=== PATIENT | female | born 1965 | race Caucasian/White ===

== ENCOUNTER 2025-02-08 16:39 | Outpatient (CLI) | payer OTHER, SELFPAY ==
--- NOTE | ~2025-02-08 | XR_ITS ---
XR abdomen/kub 1V 02/08/2025 16:57 Indication: ESWL. Right ureteral stone. Procedure: KUB Comparison: No prior studies for comparison. Findings: There is a calcification on the right hip the L3-4 level, consistent with ureteral stranding. Bowel gas pattern nonobstructive. There are pelvic phleboliths. No acute osseous abnormality. Impression: 1: Proximal right ureteral stone at the L3-4 level. Reviewed, dictated and finalized at location O. Impression: 1: Proximal right ureteral stone at the L3-4 level.
== END 2025-02-08 16:40 | disposition home or self-care (01) ==
LOC: MICIMG 16:48
PROVIDERS: PCP Urology; Visit Provider Urology
DX: N20.1 Calculus of ureter (principal)
CPT/HCPCS: 74018

== ENCOUNTER 2025-02-10 01:00 | Day surgery (SDC) | payer OTHER, SELFPAY ==
[2025-02-09 10:43] VITALS: BMI 28.0
--- NOTE | 2025-02-09 11:00 | PC.NURSE ---
Report to the Outpatient Waiting Room, entrance under the green pavilion located off [facility], at time _0930_ on date _[id number]_. Planned Procedure Time: _1130_.? Time changes happen often and if your time is changed the preop area will call you the afternoon before. - You and your visitor will be asked to self-screen and do not enter if you have any COVID symptoms. Please call surgeon if you need to reschedule. - A mask is optional within the hospital at this time. Patients may have clear liquids (water, carbonated beverages, clear teas, apple juice) until 3 hours prior to surgery with a maximum of 20 ounces. - No food from midnight until time of surgery and no smoking, or chewing tobacco (or any form of nicotine). No chewing gum, candy or mints. Take only the following medications with a SIP of water on the morning of surgery: ___Propanolol and Vilazodone____ DO NOT STOP ANY OF YOUR OTHER PRESCRIPTION MEDICATIONS PRIOR TO SURGERY EXCEPT THE FOLLOWING Hold all vitamins and supplements for 3 days per anesthesiologist. Medications to discontinue per physician Hold Ketorolac as instructed by office. Date to take last dose Please no make-up, nail chinese, hairspray, perfume, deodorant, or body powder the day of surgery.? No jewelry (including any body piercings) or valuables the day of surgery, leave them at home.? Please take a shower or bath the night before, or the morning of, surgery with an antibacterial soap.? Wear comfortable, loose fitting clothing.? - Jewelry must be removed prior to entering the operating room.? Rings and piercings that are not removed may be cut off. - The hospital will not accept responsibility for valuables.? - Please leave all valuables, including medications, at home the day of surgery. If you are going home after surgery, a licensed hack driver must drive you home.? - NO public transportation without another adult if you receive anesthesia. - We recommend that an adult stay with you for 24 hours following discharge. - We also recommend that you do not drive, make important decision, drink alcoholic beverages, or take any drugs that were not prescribed by your health care provider for at least 24 hours after your discharge time. Follow any additional instructions given to you from your surgeon. Telephone instructions given to __Hyacinth___and asked if any additional questions and then verbalized understanding. Patient advised to call surgeon office or pre surgery nurse liaison [phone] if any additional questions.
--- NOTE | 2025-02-09 14:21 | WPDANESEPPF ---
Anes - Initial Pre Proc Eval Procedure: Operation Date: 02/10/25 11:30 Proposed Procedures p Right Extracorporeal Shock Wave Lithotripsy - Diogenes Lassiter MD Date/Time: 02/09/25 14:21 Surgeon: Diogenes Lassiter MD Pre Op Diagnosis: right ureteral stone Patient Data Age: 59 Gender: F Height: 1.57 m Weight: 69.5 kg Allergies Allergy/AdvReac Type Severity Reaction Status Date / Time No Known Allergies Allergy Verified 02/10/25 10:06 Home Medications ?Medication ?Instructions ?Recorded ?Confirmed ?Type cetirizine 10 mg tablet (24Hour 10 mg PO DAILY 02/09/25 02/09/25 History Allergy) cholecalciferol (vitamin D3) 125 15,000 unit PO DAILY 02/09/25 02/09/25 History mcg (5,000 unit) tablet (Vitamin D3) estradiol 0.0375 mg/24 hr 1 patch topical .bi weekly 02/09/25 02/09/25 History semiweekly transdermal patch ketorolac 10 mg tablet 10 mg PO Q8H PRN pain 02/09/25 02/09/25 History lysine 500 mg capsule 500 mg PO BID PRN cold sores 02/09/25 02/09/25 History melatonin 10 mg capsule 10 mg PO HS 02/09/25 02/09/25 History primidone 50 mg tablet 50 mg PO BID 02/09/25 02/09/25 History propranolol 60 mg capsule,24 60 mg PO DAILY 02/09/25 02/09/25 History hr,extended release tamsulosin 0.4 mg capsule 0.4 mg PO DAILY 02/09/25 02/09/25 History trazodone 50 mg tablet 50 mg PO HS 02/09/25 02/09/25 History vilazodone 10 mg tablet 10 mg PO DAILY 02/09/25 02/09/25 History vilazodone 40 mg tablet 40 mg PO DAILY 02/09/25 02/09/25 History Patient hx anesthesia problems: none Family hx anesthesia problems: none Results Review: All pre-operative results and documents have been reviewed as part of the pre-operative evaluation. [facility] Past Medical History Medical History (Updated 02/09/25 @ 14:24 by Ry Snyder DO) Pre-diabetes Colitis Essential tremor Multiple sclerosis Surgical History Surgical History (Updated 02/09/25 @ 14:24 by Ry Snyder DO) History of mandibular surgery Social History Social History (Updated 02/10/25 @ 10:53 by Ry Snyder DO) Smoking packs per day: 1 Smoking cigarettes per day: 20.0 Years smoked: 20 Smoking pack-years: 20.00 Smoking status: Former smoker Tobacco type: cigarettes Smoking end date: 02/09/01 Additional smoking assessment comments: Only smoked when drinking Alcohol intake: former Substance use: current Substance use type: marijuana Other substance usage details: nightly Living arrangements: with family Spiritual care concerns: No Anes - Eval Final PreProcedure Day of Procedure 02/09/25 14:21 Patient weight: overweight Heart: regular rate and rhythm Lungs: clear to auscultation Airway: Mallampati scale class II Neurological: alert and oriented Last oral intake: >/= 8 hours ASA classification: III Emergent: no Anesthetic plan: proceed Anesthesia type and monitoring: general LMA and standard monitoring Results Review: All pre-operative results and documents have been reviewed as part of the pre-operative evaluation. Informed Consent: The patient's anesthetic plan and its attendant risks and benefits were discussed with the patient/family/POA. Questions were solicited and answers provided to the satisfaction of the patient/family/POA.
[2025-02-10] VITALS (8 sets, daily range): BP systolic 109–139; BP diastolic 47–89; PULSE 48–71; RESP 12–20; TEMP 36.4–36.8; O2SAT 98–100
--- NOTE | 2025-02-10 06:40 | WPDHPUPDATE1 ---
History and Physical Update Update Date/Time: 02/10/25 06:40 History and Physical has been reviewed, including an updated exam of the patient. There are NO changes in the patient's condition. Risks, benefits, and alternatives have been discussed and questions answered. Patient agrees to proceed with procedure.
--- NOTE | 2025-02-10 09:43 | ECG_ITS ---
Test Date: 2025-02-10 10:09:31 Measurements Intervals [place] Rate: 57 P: 46 CT: 145 QRS: 34 QRSD: 75 T: 43 QT: 396 QTc: 387 Interpretive Statements SINUS BRADYCARDIA WITH SINUS ARRHYTHMIA BASELINE ARTIFACT- I, II, III, AVR, AVL, AVF, V5 NORMAL ECG No previous ECG available for comparison Electronically Signed On 02-10-2025 10:26:53 CDT by Blaine Garcia D.O.
[2025-02-10 09:49] LABS: Add Urine Microscopic? YES; Appearance Urine Cloudy (Clear); Glucose Urine UA Negative (Negative); Leukocyte Esterase Ur Trace LEU/UL (Negative); Nitrate Urine Negative (Negative); Non Pathogenic Casts 0-2; Specific Grav Ur 1.014 (1.001-1.035)
[2025-02-10] MEDS: LACTATED RINGERS 1,000 ML 30 ML IV CONT ×2 (10:14→12:51)
[2025-02-10 10:24] LABS: INR 1.0; Partial Thromboplastin Time 29.5 Seconds (22.3-36.8); Prothrombin Time 13.7 Seconds (11.1-14.7)
[2025-02-10] MEDS: ceFAZolin 2 GM in SODIUM CHLORIDE 0.9% IV 50 ML 100 ML IVPB (11:30)
--- NOTE | 2025-02-10 11:59 | W.PM.PROC2 ---
Procedure Note - Detailed Date of Procedure 02/10/25 Pre-op Diagnosis Right ureteral stone Post-op Diagnosis Same Procedure Performed Right ESWL Surgeon Diogenes Lassiter MD Anesthesia General Description of Procedure The patient was brought to the operative suite where [] was placed in the supine position on the [facility] lithotripsy table. The focal point of the lithotripter was placed at a 6mm right mid-ureteral calculus. A total of 3000 shocks were delivered at a power setting of 1-5. There appeared to be good fragmentation of the stone. The patient tolerated the procedure well and was taken to the recovery room in good condition.
[2025-02-10] MEDS: fentaNYL CITRATE INJ (*CRX) 100 MCG/2 ML VIAL 25 MCG IV PUSH ×2 (13:10→13:12)
[2025-02-10] MEDS: oxyCODONE HCL (*CRX) 5 MG TAB IR PO (13:40)
== END 2025-02-10 14:04 | disposition home or self-care (01) ==
PROVIDERS: Visit Provider Urology
PROC: (CPT 50590; principal; 2025-02-10 11:30)
DX: N20.1 Calculus of ureter (principal); R73.03 Prediabetes; G25.0 Essential tremor; G35 Multiple sclerosis; I49.8 Other specified cardiac arrhythmias; M35.9 Systemic involvement of connective tissue, unspecified; F12.90 Cannabis use, unspecified, uncomplicated; Z98.890 Other specified postprocedural states; Z87.891 Personal history of nicotine dependence; Z80.3 Family history of malignant neoplasm of breast; Z82.49 Family history of ischemic heart disease and other diseases of the circulatory system
CPT/HCPCS: 50590; 36415; 81001; 85610; 85730; 93005; J0690; A9270; J2003; J2704; J3010; J7120

== ENCOUNTER 2025-02-10 08:57 | Outpatient (CLI) | payer OTHER, SELFPAY ==
--- NOTE | ~2025-02-10 | XR_ITS ---
XR abdomen/kub 1V 02/10/2025 09:11 Indication: Right ureteral stone. Procedure: KUB Comparison: 02/08/2025 Findings: There is a calcification on the right at the L3-4 level, stable compared with prior exam. Bowel gas pattern nonobstructive. There are several pelvic calcifications, consistent with phleboliths. Lung bases unremarkable. Impression: 1: Possible right ureteral stone at the L3-4 level. Consider correlation with CT. Reviewed, dictated and finalized at location O. Impression: 1: Possible right ureteral stone at the L3-4 level. Consider correlation with C T.
== END 2025-02-10 08:58 | disposition home or self-care (01) ==
LOC: MICIMG 09:01
PROVIDERS: Visit Provider Urology
DX: N20.1 Calculus of ureter (principal)
CPT/HCPCS: 74018

== ENCOUNTER 2025-02-24 13:12 | Outpatient (CLI) | payer OTHER, SELFPAY ==
--- NOTE | ~2025-02-24 | XR_ITS ---
EXAMINATION: XR abdomen/kub 1V DATE: 02/24/2025 13:25 INDICATION: Calculus of ureter TECHNIQUE: A supine view of the abdomen on 2 radiographs was obtained. COMPARISON: None. FINDINGS: Moderate amount of stool and air in nondilated large bowel. Small amount of air in nondilated small bowel. There are a few less than 1.0 cm calcifications projecting over the pelvis which may represent phleboliths, however, a distal ureteral stone or bladder stone or possible. IMPRESSION: 1. Nonspecific abdomen with a moderate amount of stool. If symptoms persist or worsen, consider a short-term follow-up study or additional imaging for further assessment. Reviewed, dictated and finalized at location Q. IMPRESSION: 1. Nonspecific abdomen with a moderate amount of stool. If symptoms persist or worsen, consider a short-term follow-up study or additio nal imaging for further assessment.
== END 2025-02-24 13:13 | disposition home or self-care (01) ==
PROVIDERS: Visit Provider Urology
DX: N20.1 Calculus of ureter (principal)
CPT/HCPCS: 74018